=== PATIENT | male | born 1980 | race Caucasian/White ===

== ENCOUNTER 2019-05-06 09:21 | Emergency (ER) | payer MEDICAID ==
[2019-05-06] MEDS ORDERED: DELTASONE 20 MG PO ONE (09:42)
[2019-05-06] MEDS ORDERED: DELTASONE 20 MG ONE (09:45)
--- NOTE | 2019-05-06 09:50 | ERPHSYRPT ---
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 increasing x 4 day.. redness and itching.. started on arms and has spread Triage Nursing Assessment: alert and in no distress.. generalized red rasied rash with itxching x 3 weeks but increased x 4 days.. starting on both arms and trunk..no drainage noted. states has been itching Physician History: PATIENT IS EMPLOYED [employer]TING [employer]ING [employer]RE[employer] COMPLAINS OF POISON CLAUDIA RASH INTERMITTENT FOR 3 WEEKS. DENIES DIFFICULTY BREATHING OR SWALLOWING. Timing/Duration: week(s) Quality: itchy Severity: moderate Location: torso, extremities Possible Causes: poison claudia Modifying Factors: Improves With: scratching, topical steriods Associated Symptoms: change in skin texture Allergies/Adverse Reactions: No Known Drug Allergies Allergy (Unverified 05/06/19 09:40) Immunizations Up to Date: (unknown) - Review of Systems Constitutional: No Fever, No Chills Eyes: No Symptoms Ears, Nose, & Throat: No Symptoms Respiratory: No Symptoms, No Cough, No Dyspnea Cardiac: No Symptoms, No Chest Pain, No Edema, No Syncope Abdominal/Gastrointestinal: No Symptoms, No Abdominal Pain, No Nausea, No Vomiting, No Diarrhea Genitourinary Symptoms: No Dysuria Musculoskeletal: No Back Pain, No Neck Pain Skin: Pruritis, Skin Lesions, No Rash Neurological: No Dizziness, No Focal Weakness, No Sensory Changes Psychological: No Symptoms Endocrine: No Symptoms All Other Systems: Reviewed and Negative - Past Medical History Pertinent Past Medical History: No Neurological History: No Pertinent History ENT History: No Pertinent History Cardiac History: No Pertinent History Respiratory History: No Pertinent History Endocrine Medical History: No Pertinent History Musculoskeletal History: No Pertinent History GI Medical History: No Pertinent History History: No Pertinent History Psycho-Social History: No Pertinent History Male Reproductive Disorders: No Pertinent History - Past Surgical History Past Surgical History: No - Social History Smoking Status: Current every day smoker Exposure to second hand smoke: No Drug Use: none Patient Lives Alone: No - Nursing Vital Signs Nursing Vital Signs: Initial Vital Signs Temperature 98.0 F 05/06/19 09:32 Pulse Rate 78 05/06/19 09:32 Respiratory Rate 18 05/06/19 09:32 Blood Pressure 148/98 05/06/19 09:32 O2 Sat by Pulse Oximetry 100 05/06/19 09:32 Pain Scale Pain Intensity 0 - Physical Exam General Appearance: no apparent distress, alert Ears, Nose, Throat Exam: normal ENT inspection, pharynx normal, moist mucous membranes Neck Exam: normal inspection, non-tender, supple, full range of motion Respiratory Exam: normal breath sounds, lungs clear, No respiratory distress Cardiovascular Exam: regular rate/rhythm, normal heart sounds Extremity Exam: normal inspection Skin Exam: other (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 AND EXTREMITIES) SpO2 Interpretation: normal SpO2: 100 O2 Delivery: Room Air Ordered Tests: Medication Summary Discontinued Medications Generic Name Dose Route Start Last Admin Trade Name Freq PRN Reason Stop Dose Admin Prednisone 60 mg 05/06/19 09:42 Deltasone 20 Mg PO 05/06/19 09:43 STAT ONE - Progress Progress Note: 05/06/19 09:46 PREDNISONE 60MG ORALLY Counseled pt/family regarding: diagnosis, need for follow-up - Departure Departure Disposition: Home Clinical Impression: CONTACT DERMATITIS Condition: Stable Critical Care Time: No Referrals: DOCTOR,NO FAMILY [Primary Care Provider] - Additional Instructions: BEGIN PREDNISONE 20MG, 2 TABLETS DAILY FOR 5 DAYS TOMORROW. TAKE OVER THE COUNTER BENADRYL 50MG EVERY 4 HOURS FOR ITCHING. MAY CAUSE DROWSINESS. CLOBETASOL PROPRONATE OINTMENT APPLY OVER RASH TWICE DAILY FOR 7 DAYS. CLEANSE RASH WITH SOAP AND WATER PRIOR TO APPLICATION. CONSULT YOUR PRIMARY CARE PROVIDER FOR FOLLOWUP. Prescriptions: Clobetasol Propionate [Temovate 0.05%] 0 gm TOP BID #2 tube Prednisone 20 mg [Deltasone 20 mg] 2 tab PO DAILY #10 tablet
[2019-05-06 10:20] VITALS: BP 127/87; PULSE 67; O2SAT 98
== END 2019-05-06 10:21 | disposition home or self-care (01) ==
LOC: ED 09:21
DX: L25.9 Unspecified contact dermatitis, unspecified cause (principal)
CPT/HCPCS: 99283; A9270-GY

== ENCOUNTER 2021-04-10 15:04 | Day surgery (SDC) | payer BC ==
[2021-04-10] MEDS ORDERED: LIDOCAINE HCL 2% 100 MG/5 ML IJ ONE (15:05)
[2021-04-10] MEDS ORDERED: Lactated Ringers 1,000 ML IV ONE (15:59)
[2021-04-10] MEDS ORDERED: DIPRIVAN 200 MG/20 ML IV ONE (17:17)
--- NOTE | 2021-04-10 20:37 | XRAY ---
Indication: Bilateral L4-S1 MBB. Intraoperative fluoroscopy provided for 15 seconds. Single digital spot images submitted for interpretation demonstrates posterior needle tips projecting over the expected left and right L4-S1 nerve roots. Correlate with intraoperative findings/report.
--- NOTE | 2021-04-11 09:22 | XRAY ---
15 seconds fluoroscopy time in surgery for bilateral L4-S1 MBB.
== END 2021-04-10 17:40 | disposition home or self-care (01) ==
LOC: SDC-PAIN 15:04
PROVIDERS: ATTEND Psychiatry & Neurology Pain Medicine
DX: M47.816 Spondylosis without myelopathy or radiculopathy, lumbar region (principal); M19.90 Unspecified osteoarthritis, unspecified site
CPT/HCPCS: 64493; 64494; 72020; 77002; J2704

== ENCOUNTER 2021-06-26 16:34 | Day surgery (SDC) | payer BC ==
[2021-06-26] MEDS ORDERED: Marcaine Mpf 0.5% Vial 30 Ml IJ ONE (16:35)
[2021-06-26] MEDS ORDERED: Reglan 10 MG/2 ML ONE (16:49)
[2021-06-26] MEDS ORDERED: Pepcid 20 MG VIAL IV ONE (17:04)
[2021-06-26] MEDS ORDERED: Lactated Ringers 1,000 ML IV ONE (17:09)
[2021-06-26] MEDS ORDERED: DIPRIVAN 200 MG/20 ML IV ONE (17:51)
--- NOTE | 2021-06-27 09:09 | XRAY ---
Indication: Bilateral L5-S1 MBB. Intraoperative fluoroscopy provided for 18 seconds. Single digital spot image submitted for interpretation demonstrates posterior needle tips projecting at expected left and right L4-S1 nerve roots. Correlate with intraoperative findings/report.
--- NOTE | 2021-06-27 15:50 | XRAY ---
18 seconds of fluoroscopy was used in surgery for a bilateral L4-S1 MBB.
== END 2021-06-26 18:17 | disposition home or self-care (01) ==
LOC: SDC-PAIN 16:34
PROVIDERS: ATTEND Psychiatry & Neurology Pain Medicine
DX: M47.816 Spondylosis without myelopathy or radiculopathy, lumbar region (principal); Z79.899 Other long term (current) drug therapy
CPT/HCPCS: 64493; 64494; 72100; 77002; J2704

== ENCOUNTER 2021-08-14 16:41 | Day surgery (SDC) | payer BC, OTHER ==
[~2021-08-14 16:41] MED LIST: Lactated Ringers 1,000 ML IV ONE
[2021-08-14] MEDS ORDERED: Xylocaine 1% Vial 30 ML PF IJ ONE (16:42)
[2021-08-14] MEDS ORDERED: Depo-Medrol 40 MG/ML IM ONE (16:42)
[2021-08-14] MEDS ORDERED: BUPIVACAINE 0.5% VIAL IJ ONE (16:42)
[2021-08-14] MEDS ORDERED: DIPRIVAN 200 MG/20 ML IV ONE (18:54)
--- NOTE | 2021-08-14 20:37 | XRAY ---
Indication: Right L4-S1 RFA. Intraoperative fluoroscopy provided for 27 seconds. 3 digital spot image submitted for interpretation demonstrates posterior needle tips projecting over the expected right L4-S1 nerve roots. Correlate with intraoperative findings/report.
--- NOTE | 2021-08-15 08:42 | XRAY ---
27 seconds fluoroscopy time in surgery for right L4-S1 RFA.
== END 2021-08-14 19:18 | disposition home or self-care (01) ==
LOC: SDC-PAIN 16:41
PROVIDERS: ATTEND Psychiatry & Neurology Pain Medicine
DX: M47.816 Spondylosis without myelopathy or radiculopathy, lumbar region (principal)
CPT/HCPCS: 64635; 64636; 72100; 77002; J1030; J2001; J2704

== ENCOUNTER 2021-08-21 16:48 | Day surgery (SDC) | payer OTHER ==
[2021-08-21] MEDS ORDERED: BUPIVACAINE 0.5% VIAL IJ ONE (16:49)
[2021-08-21] MEDS ORDERED: Depo-Medrol 40 MG/ML IM ONE (16:49)
[2021-08-21] MEDS ORDERED: Xylocaine 1% Vial 30 ML PF IJ ONE (16:49)
[2021-08-21] MEDS ORDERED: DIPRIVAN 200 MG/20 ML IV ONE (18:23)
[2021-08-21] MEDS ORDERED: Lactated Ringers 1,000 ML IV ONE (18:52)
--- NOTE | 2021-08-21 21:25 | XRAY ---
Indication: Left L4-S1 RFA. Intraoperative fluoroscopy provided for 18 seconds. 4 digital spot image submitted for interpretation demonstrates posterior needle tips projecting over the expected left L4-S1 nerve roots. Correlate with intraoperative findings/report.
--- NOTE | 2021-08-22 09:01 | XRAY ---
18 seconds fluoroscopy time in surgery for left L4-S1 RFA.
== END 2021-08-21 19:10 | disposition home or self-care (01) ==
LOC: SDC-PAIN 16:48
PROVIDERS: ATTEND Psychiatry & Neurology Pain Medicine
DX: M47.816 Spondylosis without myelopathy or radiculopathy, lumbar region (principal); Z79.899 Other long term (current) drug therapy
CPT/HCPCS: 64635; 64636; 72100; 77002; J1030; J2001; J2704

== ENCOUNTER 2022-01-08 15:31 | Day surgery (SDC) | payer OTHER ==
[2022-01-08] MEDS ORDERED: Xylocaine 1% Vial 30 ML PF IJ ONE (15:32)
[2022-01-08] MEDS ORDERED: BUPIVACAINE 0.5% VIAL IJ ONE (15:32)
[2022-01-08] MEDS ORDERED: Depo-Medrol 40 MG/ML IM ONE (15:32)
--- NOTE | 2022-01-08 19:25 | XRAY ---
Indication: Bilateral SI joint injection. Intraoperative fluoroscopy provided for 16 seconds. 5 digital spot image submitted for interpretation demonstrates posterior needle tip projecting over the inferior left and right SI joints. Correlate with intraoperative findings/report.
--- NOTE | 2022-01-09 09:22 | XRAY ---
16 seconds fluoroscopy time in surgery for injection of both SI joints.
== END 2022-01-08 18:40 | disposition home or self-care (01) ==
LOC: SDC-PAIN 15:31
PROVIDERS: ATTEND Psychiatry & Neurology Pain Medicine
DX: M46.1 Sacroiliitis, not elsewhere classified (principal); Z79.899 Other long term (current) drug therapy
CPT/HCPCS: 27096; 72202; 77002; G0260; J1030; J2001

== ENCOUNTER 2022-04-05 12:52 | Emergency (ER) | payer OTHER ==
--- NOTE | 2022-04-05 13:23 | ERPHSYRPT ---
- History of Present Illness Time Seen by Provider: 04/05/22 12:53 Source: patient Exam Limitations: no limitations Patient Subjective Stated Complaint: Pt had 2 teeth extracted 10 days ago on the top left and states that he has some minor soreness still when he eats on that side Triage Nursing Assessment: Pt drove self to the ER, hypertensive, rates pain as 3/10, pulses normal, skin n/w/d, denies any other issues and doesn't appear to be in any distress Physician History: 41 years old male with left upper jaw couple of teeth extraction almost 10 days ago at a local dental office presented to the ER for evaluation of still having some soreness, discomfort to eat solid and wants to make sure it is not infected. Patient denies any fever or chills. Timing/Duration: gradual onset Severity: mild ENT Location: dental Prearrival Treatment: over the counter meds Modifying Factors: Improves With: other Associated Symptoms: jaw pain Allergies/Adverse Reactions: No Known Drug Allergies Allergy (Verified 04/05/22 13:05) Home Medications: No Reportable Medications [No Reported Medications] 04/05/22 [History] Travel Risk - International Travel Have you traveled outside of the country in past 3 weeks: No - Coronavirus Screening Are you exhibiting any of the following symptoms?: No Close contact with a COVID-19 positive Pt in past 14-21 Days: No - Vaccine Status Have you recieved a Covid-19 vaccination: No - Review of Systems Constitutional: No Symptoms Eyes: No Symptoms Ears, Nose, & Throat: Mouth Swelling Respiratory: No Symptoms Cardiac: No Symptoms Musculoskeletal: No Symptoms Skin: No Symptoms Neurological: No Symptoms Endocrine: No Symptoms - Past Medical History Pertinent Past Medical History: Yes Neurological History: No Pertinent History ENT History: No Pertinent History Cardiac History: No Pertinent History Respiratory History: No Pertinent History Endocrine Medical History: No Pertinent History Musculoskeletal History: Other GI Medical History: No Pertinent History History: No Pertinent History Psycho-Social History: No Pertinent History Male Reproductive Disorders: No Pertinent History Other Medical History: back pain - Past Surgical History Past Surgical History: No Other Surgical History: back injections - Social History Smoking Status: Current every day smoker Exposure to second hand smoke: Yes Drug Use: none Patient Lives Alone: No - Nursing Vital Signs Nursing Vital Signs: Initial Vital Signs Temperature 98.3 F 04/05/22 12:59 Pulse Rate 85 04/05/22 12:59 Blood Pressure 152/111 04/05/22 12:59 O2 Sat by Pulse Oximetry 100 04/05/22 12:59 Pain Scale Pain Intensity 3 - Physical Exam General Appearance: no apparent distress, alert Eye Exam: bilateral eye: normal inspection, PERRL, EOMI Ear Exam: bilateral ear: auricle normal, canal normal, TM normal Nasal Exam: normal inspection Throat Exam: normal, pharynx normal, No dental tenderness (Minimal tenderness at gums with extraction site. No dry socket. No fluctuation. No erythema. 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 At this point do not think needs any antibiotics or any other intervention and is stable for discharge. Counseled pt/family regarding: diagnosis, need for follow-up - Departure Departure Disposition: Home Clinical Impression: Pain in gums Condition: Stable Critical Care Time: No Referrals: MICHELLE BEJARANO [Primary Care Provider] - Follow Up with PCP/3 days Instructions: Tooth Extraction (DC) Additional Instructions: Take Tylenol/ibuprofen as needed for pain. Soft diet. Follow-up with your dentist for reevaluation early next week. Return to ER for increasing swelling pain, fever chills etc.
[2022-04-05 13:39] VITALS: BP 152/111; PULSE 85; O2SAT 100
== END 2022-04-05 13:40 | disposition home or self-care (01) ==
LOC: ED 12:52
DX: G89.18 Other acute postprocedural pain (principal); Z72.0 Tobacco use
CPT/HCPCS: 99283

== ENCOUNTER 2023-03-25 10:49 | Emergency (ER) | payer OTHER ==
[2023-03-25 11:01] VITALS: PULSE 112; O2SAT 100
--- NOTE | 2023-03-25 11:15 | ERPHSYRPT ---
- History of Present Illness Source: patient Exam Limitations: no limitations Patient Subjective Stated Complaint: Pt states that he has been taking care of his daughter and she was diagnosed with bronchitis and he states that he began coughing last night and it is worse this morning Triage Nursing Assessment: Pt brought self to the ER, hypertensive, tachycardic, rates head pain as 4/10, has not coughed since he has been in this ER, no difficulty breathing, pulses normal, skin n/w/d, doesn't appear to be in any distress Physician History: 42 yo WM w cough since last night. Cough is nonproductive. He has nasal congestion but denies fever/ST/otalgia/N/V/D. Daughter in ER yesterday for URI. He smokes 4 cigars a day. Timing/Duration: yesterday (last night) Cough Quality/Degree: dry cough Possible Cause: no prior episodes Modifying Factors: Improves With: coughing Associated Symptoms: denies symptoms, nasal congestion Allergies/Adverse Reactions: No Known Drug Allergies Allergy (Verified 03/25/23 11:01) Hx Influenza Vaccination/Date Given: No Hx Pneumococcal Vaccination/Date Given: No Travel Risk - International Travel Have you traveled outside of the country in past 3 weeks: No - Coronavirus Screening Are you exhibiting any of the following symptoms?: Yes Symptoms: Cough: New Onset Close contact with a COVID-19 positive Pt in past 14-21 Days: No - Vaccine Status Have you recieved a Covid-19 vaccination: No - Review of Systems Constitutional: No Symptoms Eyes: No Symptoms Ears, Nose, & Throat: No Symptoms, Nose Congestion Respiratory: No Symptoms, Cough Cardiac: No Symptoms Abdominal/Gastrointestinal: No Symptoms Genitourinary Symptoms: No Symptoms Musculoskeletal: No Symptoms Skin: No Symptoms Neurological: No Symptoms Psychological: No Symptoms Endocrine: No Symptoms Hematologic/Lymphatic: No Symptoms Immunological/Allergic: No Symptoms - Past Medical History Pertinent Past Medical History: Yes Neurological History: No Pertinent History ENT History: No Pertinent History Cardiac History: No Pertinent History Respiratory History: No Pertinent History Endocrine Medical History: No Pertinent History Musculoskeletal History: Other GI Medical History: No Pertinent History History: No Pertinent History Psycho-Social History: No Pertinent History Male Reproductive Disorders: No Pertinent History Other Medical History: back pain - Past Surgical History Past Surgical History: No Other Surgical History: back injections - Social History Smoking Status: Current every day smoker Exposure to second hand smoke: Yes Drug Use: none Patient Lives Alone: No - Nursing Vital Signs Nursing Vital Signs: Initial Vital Signs Temperature 98.1 F 03/25/23 10:53 Pulse Rate 112 H 03/25/23 10:53 Respiratory Rate 14 03/25/23 10:53 Blood Pressure 171/97 03/25/23 10:53 O2 Sat by Pulse Oximetry 100 03/25/23 10:53 Pain Scale Pain Intensity 4 Hypertensive/Tachy - Physical Exam General Appearance: no apparent distress Eye Exam: PERRL/EOMI, eyes nml inspection Ears, Nose, Throat Exam: normal ENT inspection, TMs normal, pharynx normal, moist mucous membranes Neck Exam: normal inspection, non-tender, supple, full range of motion, No meningismus, No mass, No Brudzinski, No Kernig's Respiratory Exam: crackles/rales (Rales L base) Cardiovascular Exam: normal heart sounds, normal peripheral pulses, tachycardia (Mild), No murmur Gastrointestinal/Abdomen Exam: soft, normal bowel sounds, No tenderness Back Exam: normal inspection, normal range of motion, No CVA tenderness, No vertebral tenderness Extremity Exam: normal inspection, normal range of motion Neurologic Exam: alert, oriented x 3, cooperative, 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, normal mood/affect, nml cerebellar function, nml station & gait, sensation nml, No motor deficits, No sensory deficit Skin Exam: normal color, warm, dry, No rash Lymphatic Exam: No adenopathy SpO2 Interpretation: normal SpO2: 100 O2 Delivery: Room Air - Course Nursing assessment & vital signs reviewed: Yes - Radiology Exams Chest X-ray Interpretation: Discussed w/ radiologist (R base calcified granuloma) Ordered Tests: Active Orders 24 hr Category Date Time Status CHEST 1 VIEW (PORTABLE) Stat Exams 03/25/23 11:10 Taken Lab/Rad Data: Laboratory Results 03/25/23 Range/Units 11:11 Influenza Type A Ag NEGATIVE (NEGATIVE) Influenza Type B Ag NEGATIVE (NEGATIVE) RSV (PCR) NEGATIVE (NEGATIVE) SARS-CoV-2 (PCR) NEGATIVE (NEGATIVE) - Progress Progress Note: 03/25/23 13:15 Nursing note and vital signs reviewed No food or housing insecurities noted Lab result/CXR result reviewed and shared w pt Pt has rales LLL on auscultation, so most likely has an early pneumonia. Will t reat w Doxycycline 100mg bid x 10 days Counseled pt/family regarding: lab results, diagnosis, need for follow-up, rad results Medical Desision Making - Diagnostic Testing Radiological Interpretation: Reviewed by me - Risk of complications Low Risk: Low risk of morbidity from additional dx testing or treatment - Departure Departure Disposition: Home Clinical Impression: Pneumonia Condition: Stable Critical Care Time: No Referrals: MICHELLE BEJARANO [Primary Care Provider] - Follow up/PCP as directed Instructions: Pneumonia, Adult (DC) Additional Instructions: Fluids Doxycycline 100mg twice a day Follow up with your family MD Return to ER for worsening cough or increasing shortness of breath Prescriptions: Doxycycline Monohydrate 100 mg PO BID 10 Days #20 cap
[2023-03-25 11:49] LABS: INFLUENZA A NEGATIVE (NEGATIVE); INFLUENZA B NEGATIVE (NEGATIVE); RESPIRATORY SYNCTIAL VIRUS NEGATIVE (NEGATIVE); SARS-CoV-2 Xpert Express NEGATIVE (NEGATIVE)
[2023-03-25 12:27] VITALS: BP 144/94
--- NOTE | 2023-03-25 13:23 | XRAY ---
Indication: Cough and short of breath. Comparison: None Portable chest demonstrates normal heart, lungs, and bony thorax with incidental small right base calcified granuloma.
== END 2023-03-25 12:26 | disposition home or self-care (01) ==
LOC: ED 10:49
DX: J18.9 Pneumonia, unspecified organism (principal); R05.1 Acute cough; R09.81 Nasal congestion; Z28.310 Unvaccinated for COVID-19; Z72.0 Tobacco use
CPT/HCPCS: 0241U; 71045; 99283

== ENCOUNTER 2024-09-04 15:46 | Emergency (ER) | payer SELFPAY ==
[2024-09-04 16:04] VITALS: TEMP 98.8
[2024-09-04] MEDS ORDERED: Ativan 2 MG/1 ML VIAL ONE (16:09)
[2024-09-04] MEDS ORDERED: Magnesium 1 Gm / 100 Ml D5W*** 100 ML IV ONE ×2 (16:10→16:47)
[2024-09-04] MEDS ORDERED: TRANDATE 20 MG/4 ML SYRINGE IV ONE (16:10)
[2024-09-04] MEDS: TRANDATE 20 MG/4 ML SYRINGE IV ONE (16:12)
[2024-09-04] MEDS: Ativan 2 MG/1 ML VIAL IV ONE (16:12)
[2024-09-04] MEDS: Magnesium 1 Gm / 100 Ml D5W*** 100 ML IV SCH (16:12)
[2024-09-04 16:22] LABS: Absolute Neutrophil Ct (ANC) 6.24 x10^3/uL (1.78-5.38); BASOPHIL % 0.4 % (0.2-1.2); Basophil (Absolute #) 0.04 x10^3/uL (0.01-0.08); Eosinophil % 2.1 % (0.8-7.0); Eosinophil (Absolute #) 0.24 x10^3/uL (0.04-0.54); Hematocrit 44.3 % (40.1-51.0); Hemoglobin 14.9 g/dL (13.7-17.5); IMMATURE GRAN # 0.04 x10^3u/L (0.001-0.031); IMMATURE GRAN % 0.4 % (0.001-0.429); Lymphocyte (Absolute #) 3.94 x10^3/uL (1.32-3.57); Lymphocytes % 35.1 % (21.8-53.1); Mean Cell Volume 86.2 fL (79.0-92.2); Mean Corpuscular Hgb Concent. 33.6 g/dL (32.3-36.5); Mean Platelet Volume 10.5 fL (9.4-12.4); Monocyte (Absolute #) 0.74 x10^3/uL (0.30-0.82); Monocytes % 6.6 % (5.3-12.2); Neutrophil % 55.4 % (34.0-67.9); Platelet Count 287 x10^3/uL (163-337); Red Blood Count 5.14 x10^6/uL (4.63-6.08); White Blood Count 11.2 x10^3/uL (4.23-9.07)
--- NOTE | 2024-09-04 16:37 | ERPHSYRPT ---
- History of Present Illness Time Seen by Provider: 09/04/24 16:34 Source: patient, family Exam Limitations: no limitations Patient Subjective Stated Complaint: hypertension Triage Nursing Assessment: Pt brought to the ER by his , hypertenstive, tachycardic, pulses normal, skin n/w/d, angry at everything, no difficulty breathing, denies chest pain Physician History: Patient is 44-year-old male according to the patient he is otherwise healthy except for he has a lots of stressful situation at his home but very strong family history of heart disease and stroke was found to have a very high blood pressure and high heart rate at home so his called his sister who is a nurse and she advised him advised her to bring him to the emergency room in the emergency room patient is alert awake oriented to time place and person, anxious answer all the questions. Patient states that he really does not want to come to the emergency room at all and he is feeling fine but on the monitor his blood pressure is 190/120 with pulse rate heart rate is in 120-140. Patient denies any symptoms including chest pain shortness of breath headache nausea vomiting swelling on the legs. Timing/Duration: today Activities at Onset: none Severity of Pain-Max: none Severity of Pain-Current: none Modifying Factors: Improves With: nothing Nitro Today/Relief: no nitro taken today Aspirin Treatment Today: no aspirin today Associated Symptoms: denies symptoms Prior Chest Pain/Cardiac Workup: no prior chest pain Allergies/Adverse Reactions: No Known Drug Allergies Allergy (Verified 09/04/24 16:04) Hx Influenza Vaccination/Date Given: No Hx Pneumococcal Vaccination/Date Given: No Travel Risk - International Travel Have you traveled outside of the country in past 3 weeks: No - Emerging Infectious Disease Are you exhibiting symptoms associated with any current EIDs: No - Review of Systems Constitutional: No Fever, No Chills Eyes: No Symptoms Ears, Nose, & Throat: No Symptoms Respiratory: No Cough, No Dyspnea Cardiac: No Chest Pain, No Edema, No Syncope Abdominal/Gastrointestinal: No Abdominal Pain, No Nausea, No Vomiting, No Diarrhea Genitourinary Symptoms: No Dysuria Musculoskeletal: No Back Pain, No Neck Pain Skin: No Rash Neurological: No Dizziness, No Focal Weakness, No Sensory Changes Psychological: No Symptoms Endocrine: No Symptoms All Other Systems: Reviewed and Negative - Past Medical History Pertinent Past Medical History: Yes Neurological History: No Pertinent History ENT History: No Pertinent History Cardiac History: No Pertinent History Respiratory History: No Pertinent History Endocrine Medical History: No Pertinent History Musculoskeletal History: Other GI Medical History: No Pertinent History History: No Pertinent History Psycho-Social History: No Pertinent History Male Reproductive Disorders: No Pertinent History Other Medical History: back pain - Past Surgical History Past Surgical History: No Other Surgical History: back injections - Social History Smoking Status: Current every day smoker How long have you smoked: years Exposure to second hand smoke: Yes Drug Use: none Patient Lives Alone: No - Social Determinants of Health Will the patient participate in the screening: Yes Do you worry about a steady place to live?: No Do you have any problems with any of the following?: No known problems In the past 12 months,have you had to go without utilities?: No Transportation Issues: No Has anyone in your support network made you feel unsafe?: No Have you or anyone in your house had to go without enough: No - Nursing Vital Signs Nursing Vital Signs: Initial Vital Signs Temperature 98.8 F 09/04/24 15:58 Pulse Rate 111 H 09/04/24 15:58 Respiratory Rate 16 09/04/24 15:58 Blood Pressure 226/116 09/04/24 15:58 O2 Sat by Pulse Oximetry 100 09/04/24 15:58 Pain Scale Pain Intensity 0 - Physical Exam General Appearance: no apparent distress, alert Eye Exam: PERRL/EOMI, eyes nml inspection Ears, Nose, Throat Exam: normal ENT inspection, moist mucous membranes Neck Exam: normal inspection, non-tender, supple Respiratory Exam: normal breath sounds, lungs clear, No respiratory distress Cardiovascular Exam: regular rate/rhythm, normal heart sounds, No edema Gastrointestinal/Abdomen Exam: soft, No tenderness, No mass Back Exam: normal inspection, No CVA tenderness, No vertebral tenderness Extremity Exam: normal inspection, normal range of motion Neurologic Exam: alert, oriented x 3, cooperative, normal mood/affect, nml c erebellar function, sensation nml, No motor deficits Skin Exam: normal color, warm, dry Lymphatic Exam: No adenopathy SpO2: 100 - Course Nursing assessment & vital signs reviewed: Yes EKG Interpreted by Me: Sinus Tach Rhythm Strip: Sinus Tachycardia - Radiology Exams Chest X-ray Interpretation: Interpreted by me, Reviewed by me, Negative, No Pneumonia, No Pneumothorax Ordered Tests: Active Orders 24 hr Category Date Time Status EKG-ER Only STAT Care 09/04/24 16:03 Active IV Insertion STAT Care 09/04/24 16:03 Active CHEST 1 VIEW (PORTABLE) Stat Exams 09/04/24 16:23 Taken CBC W DIFF Stat Lab 09/04/24 16:00 Completed CMP Stat Lab 09/04/24 16:00 Received MAGNESIUM Stat Lab 09/04/24 16:00 Received NT PRO BNPII Stat Lab 09/04/24 16:00 Received TROPONIN Stat Lab 09/04/24 16:00 Received Medication Summary Generic Name Dose Route Start Last Admin Trade Name Freq PRN Reason Stop Dose Admin Magnesium Sulfate/Dextrose 100 mls @ 100 mls/hr 09/04/24 16:15 09/04/24 16:47 Magnesium 1 Gm / 100 Ml D5w IV 09/04/24 18:14 100 mls/hr Q1H ALISON Administration Discontinued Medications Generic Name Dose Route Start Last Admin Trade Name Lu[place]ana PRN Reason Stop Dose Admin Labetalol HCl 20 mg 09/04/24 16:03 09/04/24 16:12 Labetalol Hcl 20 Mg/4 Ml Disp.Syringe IV 09/04/24 16:04 20 mg STAT ONE Administration Labetalol HCl Confirm 09/04/24 16:10 Labetalol Hcl 20 Mg/4 Ml Disp.Syringe Administered 09/04/24 16:11 Dose 20 mg IV .STK-MED ONE Lorazepam 1 mg 09/04/24 16:03 09/04/24 16:12 Lorazepam 2 Mg/1 Ml 2 Mg Vial IV 09/04/24 16:04 1 mg STAT ONE Administration Lorazepam Confirm 09/04/24 16:09 Lorazepam 2 Mg/1 Ml 2 Mg Vial Administered 09/04/24 16:10 Dose 2 mg .ROUTE .STK-MED ONE Lab/Rad Data: Laboratory Result Diagrams 09/04/24 16:00 Laboratory Results 09/04/24 Range/Units 16:00 WBC 11.2 H (4.23-9.07) x10^3/uL RBC 5.14 (4.63-6.08) x10^6/uL Hgb 14.9 (13.7-17.5) g/dL Hct 44.3 (40.1-51.0) % MCV 86.2 (79.0-92.2) fL MCH 29.0 (25.7-32.2) pg MCHC 33.6 (32.3-36.5) g/dL RDW 13.0 (11.6-14.4) % Plt Count 287 (163-337) x10^3/uL MPV 10.5 (9.4-12.4) fL Gran % 55.4 (34.0-67.9) % Immature Gran % (Auto) 0.4 (0.001-0.429) % Nucleat RBC Rel Count 0.0 (0.00-0.2) % Eos # (Auto) 0.24 (0.04-0.54) x10^3/uL Immature Gran # (Auto) 0.04 H (0.001-0.031) x10^3u/L Absolute Lymphs (auto) 3.94 H (1.32-3.57) x10^3/uL Absolute Monos (auto) 0.74 (0.30-0.82) x10^3/uL Absolute Nucleated RBC 0.00 (0.00-0.012) x10^3u/L Lymphocytes % 35.1 (21.8-53.1) % Monocytes % 6.6 (5.3-12.2) % Eosinophils % 2.1 (0.8-7.0) % Basophils % 0.4 (0.2-1.2) % Absolute Granulocytes 6.24 H (1.78-5.38) x10^3/uL Basophils # 0.04 (0.01-0.08) x10^3/uL - Progress Progress: improved Air Movement: good Blood Culture(s) Obtained: No Antibiotics given: No Counseled pt/family regarding: lab results, diagnosis, need for follow-up, rad results Medical Desision Making - Diagnostic Testing Diagnostic test were ordered, analyzed, and reviewed by me: Yes Radiological Interpretation: Interpreted by me, Reviewed by me - Departure Departure Disposition: Home Clinical Impression: Hypertensive urgency Condition: Stable Critical Care Time: No Referrals: ZAHIDA PIPER MD [Primary Care Provider] - Follow Up with PCP/3 days Instructions: Malignant Hypertension (DC) Additional Instructions: Discharge/Care Plan GINAPEGGY SCOTT was seen on 09/04/24 in the Emergency Room. The patient was counseled regarding Diagnosis,Lab results, Imaging studies, need for follow up and when to return to the Emergency Room. Prescriptions given: Discharge Note I have spoken with the patient and/or caregivers. I have explained the patient's condition, diagnosis and treatment plan based on the information available to me at this time. I have answered the patient's and/or caregiver's questions and addressed any concerns. The patient and/or caregivers have as good understanding of the patient's diagnosis, condition and treatment plan as can be expected at this point. The vital signs have been stable. The patient's condition is stable and appropriate for discharge from the emergency department. The patient will pursue further outpatient evaluation with the primary care physician or other designated or consulting physician as outlined in the discharge instructions. The patient and/or caregivers are agreeable to this plan of care and follow-up instructions have been explained in detail. The patient and/or caregivers have received these instruction. The patient/and or caregivers are aware that any significant change in condition or worsening of symptoms should prompt an immediate return to this or the closest emergency department or call 911. PEGGY FUENTES was seen on 09/04/24 n the Emergency Room. At that time you were treated for an emergent condition, during your visit Laboratory, Radiology and/or other procedures may have been ordered. It is very important that you follow-up with your Primary Care Physician ZAHIDA PIPER MD within the next 24-48 hours to review your Emergency Room visit and the final results of testing that was ordered. Some test results such as Urine Cultures, Blood Cultures, and other cultures if ordered will not be finalized for 24-48 hours. If you do not have a Primary Care Provider please call the medical records department at [phone] to obtain a copy of your results or you may sign into our patient portal to obtain these results by visiting us @ [email or web address] and completing the following steps: 1. Click on the Patient Portal link 2. Click the Patient Self Enrollment Link to complete the enrollment form and entering your 3. Once the enrollment form is completed you will receive an email with a temporary ID and password at the email address you provided. 4. Next choose a user name and password. Your user name must be at least 4 characters long and your password must be at least 4 characters long. 5. Choose a security question from the list and provide your answer to the question. If you already have signed into the Health Portal you may access your Health Care Information 01/06 by the following steps: 1. Login to our website @ [email or web address] 2. Enter your original user name and password. FAQS The [facility] Health Portal is an online tool that contains your Lab Results, Radiology Reports, Visit History, Discharge Instructions and Health Summary Lab and Radiology Results will not be available for 72 hours on the portal. The Portal is a secure site, passwords are encryted and URLs are re-written so they cannot be copied and pasted. You and authorized family members are the only ones who can access your Portal. Also there is a timeout feature that protects your information if you leave the Portal page open. If you have technical difficulty please use the Contact Us link on the page this will allow you to submit any questions you have regarding the Portal or you may contact the Medical Record Department at [phone]. Prescriptions: Metoprolol Succinate 25 mg Xl* [Toprol-Xl 25MG Tablets] 25 mg PO HS 30 Days #30 tab
[2024-09-04 16:48] LABS: ALBUMIN 4.9 g/dL (3.5-5.0); ALKALINE PHOSPHATASE 72 U/L (38-126); ANION GAP 15.3 MEQ/L (5-15); BLOOD UREA NITROGEN 9 mg/dL (9-20); CHLORIDE 105 mmol/L (98-107); Carbon Dioxide 26 mmol/L (22-30); Creatinine 1 1.24 mg/dL (0.66-1.25); EST GLOMERULAR FILTRATION RATE 73.1 ML/MIN; Glucose 135 mg/dL (74-106); MAGNESIUM 2.1 mg/dL (1.6-2.3); Potassium 3.5 mmol/L (3.5-5.1); SGOT/AST 49 U/L (17-59); SGPT/ALT 66 U/L (0-50); SODIUM 143 mmol/L (135-145); TROPONIN < 0.012 ng/mL (0.000-0.033); Total Protein 8.2 g/dL (6.3-8.2)
[2024-09-04 17:04] VITALS: BP 147/99; PULSE 82; RESP 16; O2SAT 97
--- NOTE | 2024-09-04 18:33 | XRAY ---
Indication: High blood pressure. Comparison: March 25, 2023 Portable apical lordotic again demonstrates normal heart, lungs, and bony thorax.
== END 2024-09-04 17:11 | disposition home or self-care (01) ==
LOC: ED 15:46
DX: I16.0 Hypertensive urgency (principal); Z63.8 Other specified problems related to primary support group; Z72.0 Tobacco use
CPT/HCPCS: 36000; 36415; 71045; 80053; 83735; 83880; 84484; 85025; 93005; 96374; 96375; 99284; J2060; J3475